=== PATIENT | female | born 1990 | race Caucasian/White ===

== ENCOUNTER 2017-06-28 22:39 | Inpatient (IN) | payer MEDICAID ==
[~2017-06-28] VITALS: Ht 160 cm; Wt 63.2 kg
[2017-06-28 23:52] LABS: BASOPHIL % 0.3 % (0-2)
[2017-06-28 23:54] LABS: PLATELET COUNT 494 x10^3mcL (130-400); RED CELL DISTRIBUTION WIDTH 18.2 % (11.5-14.5)
[2017-06-29 00:14] LABS: CALCIUM 8.9 mg/dL (8.5-10.1); CARBON DIOXIDE 27.4 mmol/L (21-32); CHLORIDE SERUM 98 mmol/L (98-107); CREATININE SERUM 0.8 mg/dL (0.6-1.0); GFR1 > 60 mL/min; GLUCOSE SERUM 93 mg/dL (74-106); POTASSIUM SERUM 3.4 mmol/L (3.5-5.1); SODIUM SERUM 135 mmol/L (136-145)
[2017-06-29 00:19] LABS: ALKALINE PHOSPHATASE 95 U/L (46-116); ALT/SGPT 18 U/L (14-59); AST/SGOT 18 U/L (15-37); BILIRUBIN TOTAL 0.2 mg/dL (0.20-1.00)
[2017-06-29 00:22] LABS: TOTAL PROTEIN, SERUM 8.4 g/dL (6.4-8.2)
[2017-06-29 02:19] LABS: microscopic required? YES; urine erythrocyte 3+ (NEGATIVE)
[2017-06-29 08:12] LABS: AMPHETAMINE QUAL UR POSITIVE (NEG <=1000)
[2017-06-29 08:45] VITALS: BP 106/60
[2017-06-29 09:41] LABS: CHOLESTEROL/HDL RATIO 3.2; MAGNESIUM 2.1 mg/dL (1.8-2.4); PHOSPHOROUS 3.6 mg/dL (2.5-4.9)
[2017-06-29 09:50] LABS: T3 TOTAL 1.5 ng/mL
[2017-06-29 10:04] LABS: FREE T4 1.53 ng/dL (0.76-1.46); FREE THYROXINE INDEX 3.8 ug/dL (1.4-4.5); T4(THYROXINE) 10.5 ug/dL (4.7-13.3)
[2017-06-29 11:52] VITALS: BP 120/72
[2017-06-29 17:28] VITALS: BP 117/69
[2017-06-29 21:46] VITALS: BP 120/64
[2017-06-30 04:52] VITALS: BP 121/68
[2017-06-30 09:13] VITALS: BP 116/63
[2017-06-30 09:30] LABS: BASOPHIL % 0.3 % (0-2)
[2017-06-30 09:31] LABS: PLATELET COUNT 493 x10^3mcL (130-400); RED CELL DISTRIBUTION WIDTH 18.1 % (11.5-14.5)
[2017-06-30 09:38] LABS: CALCIUM 8.9 mg/dL (8.5-10.1); CARBON DIOXIDE 26.7 mmol/L (21-32); CHLORIDE SERUM 105 mmol/L (98-107); CREATININE SERUM 0.8 mg/dL (0.6-1.0); GFR1 > 60 mL/min; GLUCOSE SERUM 67 mg/dL (74-106); POTASSIUM SERUM 4.2 mmol/L (3.5-5.1); SODIUM SERUM 139 mmol/L (136-145)
[2017-06-30 12:49] VITALS: BP 116/62
[2017-06-30 16:22] VITALS: BP 112/65
[2017-06-30 16:37] VITALS: BP 116/62
[2017-06-30] MEDS ORDERED: DOX100 PO ×2 (16:43→16:52)
[2017-06-30] MEDS ORDERED: APAP/HYDROCODON1 T13 PO ×2 (16:44→16:52)
[2017-06-30] MEDS ORDERED: COL100 PO ×2 (16:45→16:52)
[2017-06-30] MEDS ORDERED: LAC PO ×2 (16:46→16:52)
== END 2017-06-30 18:13 | disposition home or self-care (01) | DRG 531 ==
LOC: ED 22:39 → DU 06-29 06:20
PROVIDERS: Specialist; ADMIT Family Medicine Sports Medicine
DX: N73.9 Female pelvic inflammatory disease, unspecified (principal); E44.0 Moderate protein-calorie malnutrition; E87.1 Hypo-osmolality and hyponatremia; D64.9 Anemia, unspecified; N92.0 Excessive and frequent menstruation with regular cycle; N39.0 Urinary tract infection, site not specified; E87.6 Hypokalemia; F17.210 Nicotine dependence, cigarettes, uncomplicated; F15.10 Other stimulant abuse, uncomplicated; F12.10 Cannabis abuse, uncomplicated
CPT/HCPCS: 84439; 87491; 87591; J0456; J0694; J0696; J1885; J2270; J2405; J3010; J3490; J7030; J7050; Q0092

== ENCOUNTER 2019-12-21 18:39 | Emergency (ER) | payer MEDICAID ==
[~2019-12-21] VITALS: Ht 167.6 cm; Wt 72.6 kg
[~2019-12-21 18:39] MED LIST: APAP/HYDROCODON1 T13 PO; COL100 PO; DOX100 PO; LAC PO
[2019-12-21 19:55] VITALS: BP 141/91
== END 2019-12-21 19:55 | disposition home or self-care (01) ==
LOC: ED 18:39
DX: N10 Acute pyelonephritis (principal)
CPT/HCPCS: J0696